=== PATIENT | female | born 1945 | race Caucasian/White ===

== ENCOUNTER 2017-07-29 21:17 | Observation (INO) | payer SELFPAY ==
--- NOTE | 2017-07-29 22:01 | ED PDOC ---
HPI: SOB/CHF/COPD Time Seen by Provider: 07/29/17 21:37 Chief Complaint (Nursing): Chest Pain Chief Complaint (Provider): shortness of breath History Per: Patient, Family (son) History/Exam Limitations: no limitations Onset/Duration Of Symptoms: Days (2), Waxing/Waning Current Symptoms Are (Timing): Gone Now Exacerbating Factor(s): Exertion Additional Complaint(s): 72 y/o female presents for evaluation of shortness of breath 2 days ago. Patient states she had just gotten out of bed and was walking down 2 flights of stairs when she became short of breath, with associated chest tightness and generalized fatigue. Patient states she had to sit down to rest before symptoms improved. Patient reports similar episode a few month ago, and was told by her primary doctor that if it happens again she should go to the emergency room for further evaluation. Patient denies fever, cough, chest pain , abdominal pain, leg pain, recent travel. Past Medical History Reviewed: Historical Data, Nursing Documentation, Vital Signs Vital Signs: Last Vital Signs Temp 97.5 F L 07/31/17 16:11 Pulse 60 07/31/17 16:11 Resp 18 07/31/17 16:11 BP 129/83 07/31/17 16:11 Pulse Ox 97 07/31/17 16:11 - Medical History PMH: Arthritis, HTN, Hypercholesterolemia, Hypothyroidism - Surgical History Surgical History: No Surg Hx - Family History Family History: States: Unknown Family Hx - Living Arrangements Living Arrangements: With Family - Social History Current smoker - smoking cessation education provided: No - Home Medications Home Medications: Ambulatory Orders Medication Instructions Recorded Cholecalciferol (Vitamin D3) 2,000 units PO DAILY 05/18/15 [Vitamin D3] Fish Oil 1 cap PO QOTHERDAY 05/18/15 Albuterol Sulfate [Albuterol 0.09 mg IH Q6 PRN #1 inh 05/19/15 Sulfate Hfa] Azithromycin [Zithromax] 250 mg PO DAILY #1 packet 05/19/15 Levothyroxine [Synthroid] 100 mcg PO DAILY #0 tab 05/19/15 Spacer, Inhalation [Aerochamber] 1 dev IH DAILY #1 dev 05/19/15 - Allergies Allergies/Adverse Reactions: Allergies Allergy/AdvReac Type Severity Reaction Status Date / Time No Known Allergies Allergy Verified 07/29/17 21:29 Curb-65 Severity Score - CURB-65 Severity Score Confusion: No Respiratory Rate greater than/equal to 30: No Systolic BP <90 or Diastolic BP less than/equal 60mmHg: No Age >64: Yes Curb-65 Score: 1 Percentage 30-day mortality: 2.7% Review of Systems ROS Statement: Except As Marked, All Systems Reviewed And Found Negative Cardiovascular: Positive for: Chest Pain Respiratory: Positive for: Shortness of Breath Physical Exam - Reviewed Nursing Documentation Reviewed: Yes Vital Signs Reviewed: Yes - Physical Exam Appears: Positive for: Well, Non-toxic, No Acute Distress Head Exam: Positive for: ATRAUMATIC, NORMAL INSPECTION, NORMOCEPHALIC Skin: Positive for: Normal Color Eye Exam: Positive for: Normal appearance ENT: Positive for: Normal ENT Inspection Cardiovascular/Chest: Positive for: Regular Rate, Rhythm Respiratory: Positive for: Normal Breath Sounds Gastrointestinal/Abdominal: Positive for: Normal Exam Back: Positive for: Normal Inspection Extremity: Positive for: Normal ROM, Swelling (1+ pitting edema b/l LE) Neurologic/Psych: Positive for: Alert, Oriented - Laboratory Results Result Diagrams: 07/29/17 22:24 07/29/17 22:24 - ECG ECG: Positive for: Viewed By Me (reviewed by ED attending) ECG Rhythm: Positive for: Sinus Rhythm O2 Sat by Pulse Oximetry: 96 Pulse Ox Interpretation: Normal - Radiology X-Ray: Viewed By Me X-Ray Interpretation: Cardiomegaly - Progress ED Course And Treament: labs, ekg, chest xray Case discussed with ED attending Dr. Shell, will place in observation telemetry for exertional dyspnea, chest pain Patient evaluated by FP resident on-call for admission Disposition - Clinical Impression Clinical Impression: Chest pain, Exertional dyspnea - Patient ED Disposition Is Patient to be Admitted: Yes - Disposition Disposition Time: 23:38 Condition: FAIR
[2017-07-29 22:37] LABS: EOS # 0.3 K/uL (0.0-0.7); MONO % 6.6 % (0.0-10.0)
[2017-07-29 22:50] LABS: BASO # 0.1 K/uL (0.0-0.2); BASO % 1.6 % (0.0-2.0); EOS % 4.7 % (0.0-4.0); HEMOGLOBIN 14.3 g/dL (12.0-16.0); LYMPH % 29.9 % (20.0-40.0); MEAN CELL VOLUME 91.5 fl (81.0-99.0); MEAN CORPUSCULAR HEMOGLOBIN 31.6 pg (27.0-31.0); MEAN CORPUSCULAR HGB CONC 34.5 g/dL (33.0-37.0); MONO # 0.4 K/uL (0.0-0.8); NEUT # 3.9 K/uL (1.8-7.0); NEUT % 57.2 % (50.0-75.0); NRBC % 0.4 % (0.0-0.0); RBC 4.52 Mil/uL (3.80-5.20); RED CELL DISTRIBUTION WIDTH 12.7 % (11.5-14.5); WHITE BLOOD COUNT 6.8 K/uL (4.8-10.8)
[2017-07-29 23:09] LABS: ALB/GLOB RATIO 1.2 (1.0-2.1); ALT/SGPT 82 U/L (9-52); AST/SGOT 55 U/L (14-36); BLOOD UREA NITROGEN 18 mg/dl (7-17); CALCIUM 9.3 mg/dL (8.4-10.2); GFR AFRICAN-AMERICAN > 60; GFR NON-AFRICAN AMERICAN > 60
[2017-07-29 23:16] LABS: B-TYPE NATRIURETIC PEPTIDE 46.4 pg/ml (0-900)
--- NOTE | 2017-07-30 00:54 | CP.PCM.HP ---
History of Present Illness - History of Present Illness History of Present Illness: 72 year old female brought in by her son for exertional dyspnea with associated chest tightness/pressure and dizziness x 2. First episode was two days ago, she was walking and found herself short of breath with chest pressure and dizziness and nausea after walking short distance, maybe a few blocks. These symptoms were alleviated with rest. Second episode occurred walking down the stairs, alleviated with sitting down. She previously was able to walk for up to an hour without any limitations. Her son states she does not have a client resolution specialist, but had echo and nuclear scan done two years ago. She has hypertension, managed with HCTZ and Norvasc that is well controlled. PMD: Dr. Olmstead, last visit 07/29/2017 PMH: HTN, Hypothyroid, obesity Medications: HCTZ: 12.5mg, Norvasc 5mg, Levothyroxine 100mg Allergies: NKDA Social: no tobacco/etoh/illicit drug use Surgical Hx: bilateral knee replacements, hemmorhoidectomy Language spoken: Telugu-Togolese. Son: Arnulfo Present on Admission - Present on Admission Any Indicators Present on Admission: No Review of Systems - Constitutional Constitutional: absent: Fatigue, Fever, Weight Loss - EENT Eyes: absent: Change in Vision - Cardiovascular Cardiovascular: Chest Pain, Dyspnea on Exertion. absent: Chest Pain at Rest, Claudication, Diaphoresis - Respiratory Respiratory: Dyspnea on Exertion. absent: Cough, Dyspnea, Wheezing, Chest Congestion - Gastrointestinal Gastrointestinal: absent: Abdominal Pain, Change in Bowel Habits, Diarrhea, Vomiting - Genitourinary Genitourinary: absent: Dysuria, Hematuria Past Patient History - Past Medical History & Family History Past Medical History?: Yes Past Family History: Reviewed and not pertinent - Past Social History Smoking Status: Never Smoked Alcohol: None Drugs: Denies Home Situation {Lives}: With Family - CARDIAC Hx Hypercholesterolemia: Yes Hx Hypertension: Yes - PULMONARY Hx Respiratory Disorders: No - NEUROLOGICAL Hx Neurological Disorder: No - HEENT Hx HEENT Problems: No - ENDOCRINE/METABOLIC Hx Hypothyroidism: Yes - HEMATOLOGICAL/ONCOLOGICAL Hx Blood Disorders: No - INTEGUMENTARY Hx Dermatological Problems: No - MUSCULOSKELETAL/RHEUMATOLOGICAL Hx Arthritis: Yes - GENITOURINARY/GYNECOLOGICAL Hx Genitourinary Disorders: No - PSYCHIATRIC Hx Psychophysiologic Disorder: No Hx Substance Use: No - SURGICAL HISTORY Hx Surgeries: Yes Hx Joint Replacement: Yes (bilateral knee) Other/Comment: RIGHT KNEE REPLACEMENT - ANESTHESIA Hx Anesthesia: Yes Hx Anesthesia Reactions: No Meds Allergies/Adverse Reactions: Allergies Allergy/AdvReac Type Severity Reaction Status Date / Time No Known Allergies Allergy Verified 07/29/17 21:29 Physical Exam - Constitutional Appears: Well, Non-toxic, No Acute Distress - Head Exam Head Exam: ATRAUMATIC, NORMAL INSPECTION, NORMOCEPHALIC - Eye Exam Eye Exam: EOMI, Normal appearance, PERRL - ENT Exam ENT Exam: Mucous Membranes Moist, Normal Exam - Neck Exam Neck exam: Positive for: Normal Inspection - Respiratory Exam Respiratory Exam: Clear to Auscultation Bilateral, NORMAL BREATHING PATTERN. absent: Chest Wall Tenderness, Decreased Breath Sounds, Rales, Rhonchi, Wheezes , Respiratory Distress - Cardiovascular Exam Cardiovascular Exam: REGULAR RHYTHM, +S1, +S2. absent: Diastolic murmur, Rubs, Systolic Murmur - GI/Abdominal Exam GI & Abdominal Exam: Normal Bowel Sounds, Soft. absent: Distended, Guarding, Tenderness - Rectal Exam Rectal Exam: Deferred - Extremities Exam Extremities exam: Positive for: normal inspection, pedal edema (trace bilaterally). Negative for: calf tenderness - Back Exam Back exam: NORMAL INSPECTION - Neurological Exam Neurological exam: Alert, CN II-XII Intact Results - Vital Signs Recent Vital Signs: Last Vital Signs Temp 97.8 F 07/30/17 00:27 Pulse 66 07/30/17 00:27 Resp 16 07/30/17 00:27 BP 126/78 07/30/17 00:27 Pulse Ox 95 07/30/17 00:27 - Labs Result Diagrams: 07/29/17 22:24 07/29/17 22:24 Labs: Laboratory Results - last 24 hr 07/29/17 07/29/17 22:24 22:24 WBC 6.8 RBC 4.52 Hgb 14.3 Hct 41.3 MCV 91.5 MCH 31.6 H MCHC 34.5 RDW 12.7 Plt Count 207 MPV 9.0 Neut % (Auto) 57.2 Lymph % (Auto) 29.9 [place] % (Auto) 6.6 Eos % (Auto) 4.7 H Baso % (Auto) 1.6 Neut # (Auto) 3.9 Lymph # (Auto) 2.0 [place] # (Auto) 0.4 Eos # (Auto) 0.3 Baso # (Auto) 0.1 Sodium 143 Potassium 3.7 Chloride 103 Carbon Dioxide 29 Anion Gap 15 BUN 18 H Creatinine 0.7 Est GFR ( Amer) > 60 Est GFR (Non-Af Amer) > 60 Random Glucose 130 H Calcium 9.3 Total Bilirubin 0.8 AST 55 H ALT 82 H Alkaline Phosphatase 126 Troponin I < 0.0120 NT-Pro-B Natriuret Pep 46.4 Total Protein 7.4 Albumin 4.0 Globulin 3.4 Albumin/Globulin Ratio 1.2 Assessment & Plan (1) Chest pain Assessment and Plan: 72 year old female with PMH of HTN, hypothyroidism and obesity with new onset exertional dyspnea and chest pain, admitted for rule out ACS. Currently asymptomatic. Language barrier- patient speaks occitan-Togolese Will repeat echo, last done 2 years ago. Also pt had Lexiscan and PFTs done 2 years ago Will trend troponins, negative x 1 Follow up TSH, HGA1C and lipid panel Repeat ECG in AM Status: Acute Onset Date: 05/18/15 (2) Exertional dyspnea Status: Acute (3) Hypertension Assessment and Plan: well controlled with norvasc and hctz Status: Chronic (4) Hypothyroidism Assessment and Plan: pt on synthroid 100mcg, TSH in AM to rule out cause of dyspnea, chest discomfort Status: Chronic (5) Obesity (BMI 30.0-34.9) Status: Chronic (6) Elevated LFTs Assessment and Plan: appears to be chronic, follow up hepatitis c screen, as per documentation in ecw the patients spouse of hepatitis c complications Status: Chronic (7) Prophylactic measure Assessment and Plan: lovenox for DVT prophylaxis Status: Acute Priority: Low Onset Date: 05/18/15
[2017-07-30] MEDS ORDERED: Pneumococcal 23-Valent Vaccine IM ONE (05:31)
[2017-07-30] MEDS ORDERED: Influenza Vaccine 18yr & older 0.5 ML/45 MCG SYR IM ONE (06:00)
[2017-07-30 06:04] LABS: HDL CHOLESTEROL 42 MG/DL (30-70)
[2017-07-30 06:25] LABS: LDL CHOLESTEROL 151 mg/dL (0-129)
--- NOTE | 2017-07-30 09:05 | RAD ---
HISTORY: sob COMPARISON: 05/18/2015 FINDINGS: LUNGS: No active pulmonary disease. PLEURA: No significant pleural effusion identified, no pneumothorax apparent. CARDIOVASCULAR: Normal. OSSEOUS STRUCTURES: No significant abnormalities. VISUALIZED UPPER ABDOMEN: Normal. OTHER FINDINGS: None. IMPRESSION: No active disease.
[2017-07-30] MEDS: Enoxaparin 40 mg Syringe SC SCH (09:25)
[2017-07-30] MEDS: Levothyroxine 100 MCG TAB PO SCH (09:25)
--- NOTE | 2017-07-30 12:53 | CP.PCM.PN ---
Subjective - Date & Time of Evaluation Date of Evaluation: 07/30/17 Time of Evaluation: 08:00 - Subjective Subjective: Pt seen and examined in the am. Denies any sob, states it only occurs when she is walking up stairs. Denies sob, chest pain, cough, fever, chills. Plan discussed with patient. 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 Objective - Vital Signs/Intake and Output Vital Signs (last 24 hours): Temp Pulse Resp BP Pulse Ox 97.7 F 57 L 20 109/70 96 07/30/17 08:00 07/30/17 08:00 07/30/17 08:00 07/30/17 08:00 07/30/17 08:00 - Medications Medications: Current Medications Acetaminophen (Tylenol 325mg Tab) 650 mg PO Q6 PRN PRN Reason: Pain, moderate (4-7) Amlodipine Besylate (Norvasc) 5 mg PO DAILY [facility] Last Admin: 07/30/17 09:26 Dose: Not Given Enoxaparin Sodium (Lovenox) 40 mg SC DAILY [facility] PRN Reason: Protocol Last Admin: 07/30/17 09:25 Dose: 40 mg Hydrochlorothiazide (Microzide) 12.5 mg PO DAILY [facility] Last Admin: 07/30/17 09:25 Dose: 12.5 mg Levothyroxine Sodium (Synthroid) 100 mcg PO DAILY [facility] Last Admin: 07/30/17 09:25 Dose: 100 mcg - Labs Labs: 07/29/17 22:24 07/29/17 22:24 - Constitutional Appears: Well, Non-toxic, No Acute Distress - Head Exam Head Exam: NORMAL INSPECTION - Eye Exam Eye Exam: Normal appearance - ENT Exam ENT Exam: Mucous Membranes Moist - Respiratory Exam Respiratory Exam: Clear to Ausculation Bilateral. absent: Accessory Muscle Use , Decreased Breath Sounds, Rales, Wheezes - Cardiovascular Exam Cardiovascular Exam: REGULAR RHYTHM, +S1, +S2. absent: Gallop, JVD, +S4, Murmur - GI/Abdominal Exam GI & Abdominal Exam: Soft, Normal Bowel Sounds. absent: Distended, Tenderness - Extremities Exam Extremities Exam: Normal Capillary Refill, Pedal Edema (Trace). absent: Calf Tenderness, Joint Swelling - Neurological Exam Neurological Exam: Alert, Awake, Oriented x3 - Psychiatric Exam Psychiatric exam: Normal Affect - Skin Skin Exam: Normal Color Assessment and Plan - Assessment and Plan (Free Text) Assessment: 72 year old female brought in by her son for exertional dyspnea with associated chest tightness/pressure and dizziness x 2. Plan for Echo today. Chest pain -EKG wnl, Troponins x2 negative -Cxray, no active disease -Last Echo completed in 2015 -TSH pending, Hg a1c 5.6 -Repeat EKG NSR, Left axis deviation -Echo complete- results pending Exertional Dyspnea - Asymptomatic at rest -Unknown etiology - May be 2/2 to CHF, f/u echo - Unlikely PE, Wells Score 2 HTN -Normotensive -Norvasc, HTZ Hypothyroidism -Levothyroxine -F/U TSH Obesity -BMI 30 Elevated LFT's -Chronic -Hepatitis Panel sent DVT ppx -Lovenox Diet -Heart Healthy
--- NOTE | 2017-07-30 17:41 | CARD ---
APPROVED REPORT EXAM: Two-dimensional and M-mode echocardiogram with Doppler and color Doppler. Other Information Quality : GoodRhythm : NSR INDICATION Dyspnea 2D DIMENSIONS IVSd1.11 (0.7-1.1cm)LVDd4.31 (3.9-5.9cm) LVOT Diameter2.46 (1.8-2.4cm)PWd0.86 (0.7-1.1cm) IVSs1.70 (0.8-1.2cm)LVDs2.39 (2.5-4.0cm) FS (%) 44.5 %PWs1.64 (0.8-1.2cm) LVEF (%)55.0 (>50%) M-Mode DIMENSIONS Left Atrium (MM)3.31 (2.5-4.0cm)IVSd0.94 (0.7-1.1cm) Aortic Root3.50 (2.2-3.7cm)LVDd4.63 (4.0-5.6cm) Aortic Cusp Exc.2.12 (1.5-2.0cm)PWd1.05 (0.7-1.1cm) IVSs1.52 cmFS (%) 51 % LVDs2.29 (2.0-3.8cm)PWs1.76 cm Mitral Valve MV E Calsctkr42.6cm/sMV DECEL [id number] A Dlmklujk61.6cm/s MV KQJ21wrV/A ratio1.1MVA (PHT)3.08cm2 TDI Lateral E' Peak V8.80cm/sMedial E' Peak V5.95cm/sE/Lateral E'7.2 E/Medial E'10.7 LEFT VENTRICLE The left ventricle is normal size. There is normal left ventricular wall thickness. The left ventricular function is normal. The left ventricular ejection fraction is within the normal range. There is normal LV segmental wall motion. Transmitral Doppler flow pattern is Grade I-abnormal relaxation pattern. RIGHT VENTRICLE The right ventricle is normal size. There is normal right ventricular wall thickness. The right ventricular systolic function is normal. ATRIA The left atrium size is normal. The right atrium size is normal. AORTIC VALVE The aortic valve is normal in structure. There is trace aortic regurgitation. There is no aortic valvular stenosis. MITRAL VALVE The mitral valve is normal in structure. There is no mitral valve stenosis. There is no mitral valve regurgitation noted. TRICUSPID VALVE The tricuspid valve is normal in structure. There is no tricuspid valve regurgitation noted. PULMONIC VALVE The pulmonary valve is normal in structure. There is no pulmonic valvular regurgitation. GREAT VESSELS The aortic root is normal in size. The IVC is normal in size and collapses >50% with inspiration. PERICARDIAL EFFUSION The pericardium appears normal. <Conclusion> The left ventricle is normal size. There is normal left ventricular wall thickness. The left ventricular function is normal. The left ventricular ejection fraction is within the normal range. There is normal LV segmental wall motion. Transmitral Doppler flow pattern is Grade I-abnormal relaxation pattern.
--- NOTE | 2017-07-30 18:35 | CARD ---
APPROVED REPORT EKG Measurement Heart [id number] <Conclusion> Normal sinus rhythm Left axis deviation Nonspecific T wave abnormality Abnormal ECG
[2017-07-30 19:49] LABS: SQUAMOUS EPITHIAL < 1 /hpf (0-5); URINE BACTERIA RARE (<OCC); URINE BILIRUBIN NEGATIVE (NEGATIVE); URINE BLOOD NEGATIVE (NEGATIVE); URINE CLARITY CLEAR (Clear); URINE COLOR STRAW (YELLOW); URINE GLUCOSE (UA) NEG (Normal); URINE LEUKOCYTE ESTERASE NEG Leu/uL (Negative); URINE PROTEIN NEGATIVE (NEGATIVE); URINE UROBILINOGEN 0.2-1.0 mg/dL (0.2-1.0)
--- NOTE | 2017-07-31 07:04 | CP.PCM.PN ---
Objective - Vital Signs/Intake and Output Vital Signs (last 24 hours): Temp Pulse Resp BP Pulse Ox 97.4 F L 66 18 129/80 96 07/31/17 05:46 07/31/17 05:46 07/31/17 05:46 07/31/17 05:46 07/31/17 05:46 - Medications Medications: Current Medications Acetaminophen (Tylenol 325mg Tab) 650 mg PO Q6 PRN PRN Reason: Pain, moderate (4-7) Enoxaparin Sodium (Lovenox) 40 mg SC DAILY [facility] PRN Reason: Protocol Last Admin: 07/30/17 09:25 Dose: 40 mg Levothyroxine Sodium (Synthroid) 100 mcg PO DAILY [facility] Last Admin: 07/30/17 09:25 Dose: 100 mcg - Labs Labs: 07/29/17 22:24 07/29/17 22:24
[2017-07-31] MEDS: Enoxaparin 40 mg Syringe SC SCH (08:53)
--- NOTE | 2017-07-31 09:58 | CP.PCM.DIS ---
Provider - Provider Date of Admission: 07/29/17 23:19 Attending physician: Lucila Alcantara MD Time Spent in preparation of Discharge (in minutes): 55 Diagnosis - Discharge Diagnosis (1) Chest pain Status: Resolved Onset Date: 05/18/15 (2) Shortness of breath on exertion Status: Resolved Hospital Course - Lab Results Lab Results: Most Recent Lab Values WBC 6.8 K/uL (4.8-10.8) 07/29/17 22: RBC 4.52 Mil/uL (3.80-5.20) 07/29/17 22:24 Hgb 14.3 g/dL (12.0-16.0) 07/29/17 22: Hct 41.3 % (34.0-47.0) 07/29/17: MCV 91.5 fl (81.0-99.0) 07/29/17: MCH 31.6 pg (27.0-31.0) H 07/29/17: MCHC 34.5 g/dL (33.0-37.0) 07/29/17:24 RDW 12.7 % (11.5-14.5) 07/29/17:24 Plt Count 207 K/uL (130-400) 07/29/17 22:24 MPV 9.0 fl (7.2-11.7) 07/29/17 22:24 Neut % (Auto) 57.2 % (50.0-75.0) 07/29/17: Lymph % (Auto) 29.9 % (20.0-40.0) 07/29/17: [place] % (Auto) 6.6 % (0.0-10.0) 07/29/17: Eos % (Auto) 4.7 % (0.0-4.0) H 07/29/17:24 Baso % (Auto) 1.6 % (0.0-2.0) 07/29/17:24 Neut # (Auto) 3.9 K/uL (1.8-7.0) 07/29/17 22:24 Lymph # (Auto) 2.0 K/uL (1.0-4.3) 07/29/17: [place] # (Auto) 0.4 K/uL (0.0-0.8) 07/29/17 22:24 Eos # (Auto) 0.3 K/uL (0.0-0.7) 07/29/17 22:24 Baso # (Auto) 0.1 K/uL (0.0-0.2) 07/29/17 22:24 Sodium 143 mmol/l (132-148) 07/29/17 22:24 Potassium 3.7 MMOL/L (3.6-5.0) 07/29/17 22:24 Chloride 103 mmol/L (98-107) 07/29/17 22:24 Carbon Dioxide 29 mmol/L (22-30) 07/29/17 22:24 Anion Gap 15 (10-20) 07/29/17 22:24 BUN 18 mg/dl (7-17) H 07/29/17 22:24 Creatinine 0.7 mg/dl (0.7-1.2) 07/29/17 22:24 Est GFR ( Amer) > 60 07/29/17 22:24 Est GFR (Non-Af Amer) > 60 07/29/17 22:24 Random Glucose 130 mg/dL (65-105) H 07/29/17 22:24 Hemoglobin A1c 5.6 % (4.2-6.5) 07/30/17 04:48 Calcium 9.3 mg/dL (8.4-10.2) 07/29/17 22:24 Total Bilirubin 0.8 mg/dl (0.2-1.3) 07/29/17 22:24 AST 55 U/L (14-36) H 07/29/17 22:24 ALT 82 U/L (9-52) H 07/29/17 22:24 Alkaline Phosphatase 126 U/L (38-126) 07/29/17 22:24 Troponin I < 0.0120 ng/mL (0.00-0.120) 07/30/17 04:48 NT-Pro-B Natriuret Pep 46.4 pg/ml (0-900) 07/29/17 22:24 Total Protein 7.4 G/DL (6.3-8.2) 07/29/17 22:24 Albumin 4.0 g/dL (3.5-5.0) 07/29/17 22:24 Globulin 3.4 gm/dL (2.2-3.9) 07/29/17 22:24 Albumin/Globulin Ratio 1.2 (1.0-2.1) 07/29/17 22:24 Triglycerides 182 mg/DL (0-149) H 07/30/17 04:48 Cholesterol 217 mg/dL (0-199) H 07/30/17 04:48 LDL Cholesterol Direct 151 mg/dL (0-129) H 07/30/17 04:48 HDL Cholesterol 42 MG/DL (30-70) 07/30/17 04:48 TSH 3rd Generation 1.93 mIU/ML (0.46-4.68) 07/30/17 04:48 Urine Color Straw (YELLOW) 07/30/17 19:00 Urine Clarity Clear (Clear) 07/30/17 19:00 Urine pH 5.0 (5.0-8.0) 07/30/17 19:00 Ur Specific [place] 1.008 (1.003-1.030) 07/30/17 19:00 Urine Protein Negative mg/dL (NEGATIVE) 07/30/17 19:00 Urine Glucose (UA) Neg mg/dL (Normal) 07/30/17 19:00 Urine Ketones Negative mg/dL (NEGATIVE) 07/30/17 19:00 Urine Blood Negative (NEGATIVE) 07/30/17 19:00 Urine Nitrate Negative (NEGATIVE) 07/30/17 19:00 Urine Bilirubin Negative (NEGATIVE) 07/30/17 19:00 Urine Urobilinogen 0.2-1.0 mg/dL (0.2-1.0) 07/30/17 19:00 Ur Leukocyte Esterase Neg [place]/uL (Negative) 07/30/17 19:00 Urine RBC (Auto) < 1 /hpf (0-3) 07/30/17 19:00 Urine Microscopic WBC < 1 /hpf (0-5) 07/30/17 19:00 Ur Squamous Epith Cells < 1 /hpf (0-5) 07/30/17 19:00 Urine Bacteria Rare (<OCC) 07/30/17 19:00 Hepatitis C Antibody Negative (NEGATIVE) 07/30/17 04:48 - Hospital Course Hospital Course: Hospital Course: 72 year old female wiht hx of HTN, Hypothryoidism brought in by her son for 2 episodes of exertional dyspnea with associated chest tightness/pressure and dizziness. EKG and cardiac enzymes were normal. Wells Score was 2. Pt had echo completed which showed normal ejection fraction. Her blood pressure was noted to be low while on antihypertensives so her BP medications were discontinued during her hospital stay and her BP remained within normal limits. We discontinued her antihypertensive medications as this may have contributed to her symptoms. She was evaluated by PT and was stable on discharged. Discharge Medications: Discontinue Norvasc and HTZ. Continue with current medications: -Levothyroxine Sodium (Synthroid) 100 mcg PO DAILY [facility] -Albuterol 8.5 Sulfate Discharge Instructions given to pt at bedside prior to discharge: Discontinue Blood Pressure medications. Record am and pm blood pressure readings as well as any new episodes of chest tightness/dizziness. Bring log to next follow up appt with Dr. Marcano for evaluation of blood pressures and necissity for antihypertensives. F/U appt scheduled for 08/11 at 8:40am. Discharge Exam - Head Exam Head Exam: NORMAL INSPECTION - Eye Exam Eye Exam: Normal appearance - ENT Exam ENT Exam: Mucous Membranes Moist - Respiratory Exam Respiratory Exam: Clear to PA & Lateral. absent: Accessory Muscle Use, Rales, Wheezes - Cardiovascular Exam Cardiovascular Exam: REGULAR RHYTHM, +S1, +S2. absent: Systolic Murmur - GI/Abdominal Exam GI & Abdominal Exam: Normal Bowel Sounds, Soft. absent: Distended, Tenderness - Neurological Exam Neurological exam: Alert, Oriented x3 - Psychiatric Exam Psychiatric exam: Normal Affect - Skin Skin Exam: Normal Color Discharge Plan - Follow Up Plan Condition: FAIR Disposition: HOME/ ROUTINE Referrals: [facility] [Outside] - 08/11/17 8:40 am (Dr. Marcano)
[2017-07-31] MEDS: Levothyroxine 100 MCG TAB PO SCH (11:00)
[2017-07-31 16:12] VITALS: BP 129/83; PULSE 60; RESP 18; TEMP 97.5
[2017-08-04 05:43] VITALS: O2SAT 96
== END 2017-07-31 16:15 | disposition home or self-care (01) ==
LOC: H.ER 21:17 → H.ERHOLD 23:19 → H.TEL 07-30 00:52
PROVIDERS: ADMIT Family Medicine Geriatric Medicine; ATTEND Family Medicine Geriatric Medicine
DX: R00.1 Bradycardia, unspecified (principal); I10 Essential (primary) hypertension; E78.00 Pure hypercholesterolemia, unspecified; E03.9 Hypothyroidism, unspecified; E66.9 Obesity, unspecified; Z68.30 Body mass index [BMI] 30.0-30.9, adult; Z96.653 Presence of artificial knee joint, bilateral; Z23 Encounter for immunization; R79.89 Other specified abnormal findings of blood chemistry
CPT/HCPCS: 36415; 71045; 80053; 80061; 81003; 83036; 83880; 84443; 84484; 85025; 86803; 90471; 93005; 93306; 97161; 99285; G0378; G8978; G8979; G8980; J1650; Q2035